=== PATIENT | male | born 1980 ===

== ENCOUNTER → 2020-11-18 11:14 | Outpatient (CLI) | payer OTHER, MEDICAID, SELFPAY ==
[2020-11-18 16:25] LABS: COVID-19 CEPHEID PCR (VTM/NP) Negative (Negative)
== END ==
PROVIDERS: PCP Nurse Practitioner; Visit Provider Nurse Practitioner
DX: Z20.822 Contact with and (suspected) exposure to COVID-19 (principal)
CPT/HCPCS: C9803; U0003